=== PATIENT | male | born 1940 | race Caucasian/White ===

== ENCOUNTER 2017-11-30 17:35 | Inpatient (IN) | payer MEDICARE, OTHER ==
[2017-11-30] MEDS ORDERED: PIP/TAZO PER PHARMACY MC (18:15)
[2017-11-30] MEDS ORDERED: ONDANSETRON PF 4 MG/2 ML VIAL. IV (18:30)
[2017-11-30 18:43] LABS: ADD MAN DIFF? NO
[2017-11-30 18:45] LABS: BASO # 0.1 x10^3/uL (0.0-0.2); BASO % 1 % (0-3); EOS # 0.1 x10^3/uL (0.0-0.7); EOS % 1 % (0-3); HEMATOCRIT 37.4 % (39.0-53.0); HEMOGLOBIN 12.8 g/dL (13.0-17.5); LYMPH # 1.6 x10^3/uL (1.0-4.8); LYMPH % 17 % (24-48); MEAN CORPUSCULAR HEMOGLOBIN 34 pg (25-35); MEAN CORPUSCULAR HGB CONC 34 g/dL (31-37); MEAN CORPUSCULAR VOLUME 98 fL (79-100); MONO # 0.9 x10^3/uL (0.0-1.1); MONO % 9 % (0-9); NEUT % 72 % (31-73); PLATELET COUNT 362 x10^3/uL (140-400); RED BLOOD COUNT 3.82 x10^6/uL (4.30-5.70); RED CELL DISTRIBUTION WIDTH 14.1 % (11.5-14.5); WHITE BLOOD COUNT 9.7 x10^3/uL (4.0-11.0)
[2017-11-30] MEDS: PIPERACILLIN/TAZOBACTAM 3.375 GM in IV NORMAL SALINE 50ML 50 ML IV (18:52)
[2017-11-30 18:53] LABS: ANION GAP 9 (6-14); BLOOD UREA NITROGEN 14 mg/dL (8-26); BUN/CREATININE RATIO 16 (6-20); CALCIUM 9.5 mg/dL (8.5-10.1); CARBON DIOXIDE 27 mmol/L (21-32); CHLORIDE 102 mmol/L (98-107); CREATININE 0.9 mg/dL (0.7-1.3); GLUCOSE 104 mg/dL (70-99); POTASSIUM 4.7 mmol/L (3.5-5.1); SODIUM 138 mmol/L (136-145)
[2017-11-30] MEDS: oxyCODONE/APAP 5/325 1 TAB TABLET PO (18:53)
[2017-11-30 18:59] LABS: ALBUMIN 3.3 g/dL (3.4-5.0); ALBUMIN/GLOBULIN RATIO 0.7 (1.0-1.7); ALK PHOS 87 U/L (46-116); ALT (SGPT) 39 U/L (16-63); AST (SGOT) 46 U/L (15-37); TOTAL BILIRUBIN 0.5 mg/dL (0.2-1.0); TOTAL PROTEIN 7.9 g/dL (6.4-8.2)
[2017-11-30] MEDS: IV NORMAL SALINE 1000ML BAG 1,000 ML IV (21:59)
[2017-11-30] MEDS: VANCOMYCIN 1.75 GM in IV NORMAL SALINE 500ML BAG 500 ML IV (21:59)
[2017-11-30] MEDS: fentaNYL PF VIAL 100 MCG/2 ML VIAL IV (22:02)
[2017-11-30] MEDS: IPRATROPIUM BROMIDE 0.5 MG/2.5 ML NEBU. NEB (22:38)
[2017-12-01] MEDS: VANCOMYCIN PER PHARMACY MC (01:08)
[2017-12-01] MEDS: PIPERACILLIN/TAZOBACTAM 3.375 GM in IV NORMAL SALINE 50ML 50 ML IV ×4 (02:45→16:48)
[2017-12-01] MEDS: IV NORMAL SALINE 1000ML BAG 1,000 ML IV ×2 (04:26→14:26)
[2017-12-01] MEDS: IPRATROPIUM BROMIDE 0.5 MG/2.5 ML NEBU. NEB ×4 (07:00→20:02)
[2017-12-01 08:18] LABS: ADD MAN DIFF? NO
[2017-12-01 08:29] LABS: BASO % 0 % (0-3); EOS # 0.2 x10^3/uL (0.0-0.7); EOS % 3 % (0-3); HEMATOCRIT 35.7 % (39.0-53.0); HEMOGLOBIN 12.2 g/dL (13.0-17.5); LYMPH # 0.9 x10^3/uL (1.0-4.8); LYMPH % 13 % (24-48); MEAN CORPUSCULAR HEMOGLOBIN 34 pg (25-35); MEAN CORPUSCULAR HGB CONC 34 g/dL (31-37); MEAN CORPUSCULAR VOLUME 98 fL (79-100); MONO # 0.6 x10^3/uL (0.0-1.1); MONO % 9 % (0-9); NEUT # 5.4 x10^3uL (1.8-7.7); NEUT % 75 % (31-73); PLATELET COUNT 302 x10^3/uL (140-400); RED BLOOD COUNT 3.64 x10^6/uL (4.30-5.70); RED CELL DISTRIBUTION WIDTH 13.8 % (11.5-14.5); WHITE BLOOD COUNT 7.2 x10^3/uL (4.0-11.0)
[2017-12-01 08:43] LABS: ANION GAP 6 (6-14); BLOOD UREA NITROGEN 11 mg/dL (8-26); CALCIUM 9.2 mg/dL (8.5-10.1); CARBON DIOXIDE 30 mmol/L (21-32); CHLORIDE 104 mmol/L (98-107); CREATININE 0.9 mg/dL (0.7-1.3); GLUCOSE 95 mg/dL (70-99); POTASSIUM 4.1 mmol/L (3.5-5.1); SODIUM 140 mmol/L (136-145)
[2017-12-01] MEDS ORDERED: IPRATRPIUM/ALBUTEROL 0.5/2.5MG 3 ML NEBU. NEB (08:45)
[2017-12-01] MEDS: SENNOSIDES/DOCUSATE 8.6/50MG TABLET. PO ×2 (09:00→21:01)
[2017-12-01 09:41] LABS: PROCALCITONIN < 0.10 ng/mL (0.00-0.10); SEDIMENTATION RATE 42 (0-15)
[2017-12-01] MEDS: oxyCODONE/APAP 5/325 1 TAB TABLET PO ×2 (10:48→16:47)
[2017-12-01] MEDS: VANCOMYCIN 1 GM in IV NORMAL SALINE 250ML 250 ML IV ×2 (10:52→23:11)
[2017-12-01] MEDS: FINASTERIDE 5 MG TABLET. PO (10:56)
[2017-12-01] MEDS: MULTIVITAMIN with MINERAL TABLET. PO (10:56)
[2017-12-01] MEDS: ENOXAPARIN 40 MG/0.4 ML SYRINGE. SQ (10:57)
[2017-12-01] MEDS: CHOLECALCIFEROL (VITAMIN D3) 1,000 UNIT TABLET PO ×2 (10:57→21:01)
[2017-12-01] MEDS: GADOBUTROL 7.5 MMOL/7.5 ML VIAL IV (15:34)
[2017-12-01] MEDS: NICOTINE 21MG PATCH. TD (21:00)
[2017-12-01] MEDS: TAMSULOSIN 0.4 MG CAP.ER.24H. PO (21:00)
[2017-12-01] MEDS: LACTOBACILLUS RHAMNOSUS GG 1 CAPSULE. PO (21:00)
[2017-12-01] MEDS: DONEPEZIL HCL 10 MG TABLET. PO (21:01)
[2017-12-01] MEDS: CLOPIDOGREL BISULFATE 75 MG TABLET PO (21:01)
[2017-12-01] MEDS: ALBUTEROL SULFATE 2.5 MG/3 ML NEBU. NEB (21:12)
[2017-12-02] MEDS: PIPERACILLIN/TAZOBACTAM 3.375 GM in IV NORMAL SALINE 50ML 50 ML IV ×5 (00:23→22:46)
[2017-12-02] MEDS: oxyCODONE/APAP 5/325 1 TAB TABLET PO ×3 (00:35→22:45)
[2017-12-02] MEDS: tiZANidine 4 MG TABLET. PO ×2 (02:35→14:40)
[2017-12-02] MEDS: fentaNYL PF VIAL 100 MCG/2 ML VIAL IV ×3 (03:27→22:45)
[2017-12-02] MEDS: IPRATROPIUM BROMIDE 0.5 MG/2.5 ML NEBU. NEB ×4 (07:50→19:21)
[2017-12-02] MEDS: FINASTERIDE 5 MG TABLET. PO (08:39)
[2017-12-02] MEDS: LACTOBACILLUS RHAMNOSUS GG 1 CAPSULE. PO ×2 (08:39→22:44)
[2017-12-02] MEDS: CHOLECALCIFEROL (VITAMIN D3) 1,000 UNIT TABLET PO ×2 (08:39→22:45)
[2017-12-02] MEDS: SENNOSIDES/DOCUSATE 8.6/50MG TABLET. PO ×2 (08:39→22:44)
[2017-12-02] MEDS: ENOXAPARIN 40 MG/0.4 ML SYRINGE. SQ (08:41)
[2017-12-02] MEDS: MULTIVITAMIN with MINERAL TABLET. PO (08:41)
[2017-12-02] MEDS: NICOTINE 21MG PATCH. TD (08:42)
[2017-12-02 10:46] LABS: ADD MAN DIFF? NO
[2017-12-02 10:58] LABS: BASO % 0 % (0-3); EOS # 0.2 x10^3/uL (0.0-0.7); EOS % 3 % (0-3); HEMATOCRIT 33.8 % (39.0-53.0); HEMOGLOBIN 11.7 g/dL (13.0-17.5); LYMPH # 0.6 x10^3/uL (1.0-4.8); LYMPH % 9 % (24-48); MEAN CORPUSCULAR HEMOGLOBIN 34 pg (25-35); MEAN CORPUSCULAR HGB CONC 35 g/dL (31-37); MEAN CORPUSCULAR VOLUME 98 fL (79-100); MONO # 0.9 x10^3/uL (0.0-1.1); MONO % 12 % (0-9); NEUT # 5.5 x10^3uL (1.8-7.7); NEUT % 76 % (31-73); PLATELET COUNT 304 x10^3/uL (140-400); RED BLOOD COUNT 3.47 x10^6/uL (4.30-5.70); WHITE BLOOD COUNT 7.2 x10^3/uL (4.0-11.0)
[2017-12-02 11:05] LABS: ANION GAP 3 (6-14); BLOOD UREA NITROGEN 12 mg/dL (8-26); CALCIUM 8.6 mg/dL (8.5-10.1); CARBON DIOXIDE 33 mmol/L (21-32); CHLORIDE 105 mmol/L (98-107); CREATININE 0.9 mg/dL (0.7-1.3); GLUCOSE 97 mg/dL (70-99); POTASSIUM 4.3 mmol/L (3.5-5.1); SODIUM 141 mmol/L (136-145)
[2017-12-02 11:11] LABS: VANC TR 11.7 mcg/mL (10.0-20.0)
[2017-12-02] MEDS: VANCOMYCIN PER PHARMACY MC (11:21)
[2017-12-02] MEDS: VANCOMYCIN 1 GM in IV NORMAL SALINE 250ML 250 ML IV ×2 (14:28→22:46)
[2017-12-02] MEDS: DONEPEZIL HCL 10 MG TABLET. PO (22:44)
[2017-12-02] MEDS: NICOTINE 14MG PATCH. TD (22:44)
[2017-12-02] MEDS: TAMSULOSIN 0.4 MG CAP.ER.24H. PO (22:45)
[2017-12-02] MEDS: CLOPIDOGREL BISULFATE 75 MG TABLET PO (22:47)
[2017-12-03] MEDS: PIPERACILLIN/TAZOBACTAM 3.375 GM in IV NORMAL SALINE 50ML 50 ML IV ×4 (06:00→23:43)
[2017-12-03] MEDS: IPRATROPIUM BROMIDE 0.5 MG/2.5 ML NEBU. NEB ×4 (07:15→20:28)
[2017-12-03] MEDS: CHOLECALCIFEROL (VITAMIN D3) 1,000 UNIT TABLET PO ×2 (09:24→20:23)
[2017-12-03] MEDS: LACTOBACILLUS RHAMNOSUS GG 1 CAPSULE. PO ×2 (09:24→20:24)
[2017-12-03] MEDS: NICOTINE 14MG PATCH. TD (09:24)
[2017-12-03] MEDS: FINASTERIDE 5 MG TABLET. PO (09:24)
[2017-12-03] MEDS: SENNOSIDES/DOCUSATE 8.6/50MG TABLET. PO ×2 (09:24→20:23)
[2017-12-03] MEDS: MULTIVITAMIN with MINERAL TABLET. PO (09:24)
[2017-12-03] MEDS: ENOXAPARIN 40 MG/0.4 ML SYRINGE. SQ (09:26)
[2017-12-03] MEDS: VANCOMYCIN 1 GM in IV NORMAL SALINE 250ML 250 ML IV ×2 (11:06→23:42)
[2017-12-03] MEDS: oxyCODONE/APAP 5/325 1 TAB TABLET PO ×2 (12:27→20:24)
[2017-12-03] MEDS: VANCOMYCIN PER PHARMACY MC (13:12)
[2017-12-03 17:09] LABS: CREATININE 0.9 mg/dL (0.7-1.3)
[2017-12-03] MEDS: DONEPEZIL HCL 10 MG TABLET. PO (20:23)
[2017-12-03] MEDS: TAMSULOSIN 0.4 MG CAP.ER.24H. PO (20:23)
[2017-12-03] MEDS: CLOPIDOGREL BISULFATE 75 MG TABLET PO (20:24)
[2017-12-03] MEDS: fentaNYL PF VIAL 100 MCG/2 ML VIAL IV (20:24)
[2017-12-03] MEDS: ALBUTEROL SULFATE 2.5 MG/3 ML NEBU. NEB (22:14)
[2017-12-04] MEDS: fentaNYL PF VIAL 100 MCG/2 ML VIAL IV (00:14)
[2017-12-04] MEDS: PIPERACILLIN/TAZOBACTAM 3.375 GM in IV NORMAL SALINE 50ML 50 ML IV ×4 (06:10→23:00)
[2017-12-04] MEDS: oxyCODONE/APAP 5/325 1 TAB TABLET PO ×3 (06:19→21:28)
[2017-12-04] MEDS: IPRATROPIUM BROMIDE 0.5 MG/2.5 ML NEBU. NEB ×4 (07:30→21:06)
[2017-12-04] MEDS: SENNOSIDES/DOCUSATE 8.6/50MG TABLET. PO ×2 (09:02→21:28)
[2017-12-04] MEDS: CHOLECALCIFEROL (VITAMIN D3) 1,000 UNIT TABLET PO ×2 (09:02→21:28)
[2017-12-04] MEDS: MULTIVITAMIN with MINERAL TABLET. PO (09:03)
[2017-12-04] MEDS: FINASTERIDE 5 MG TABLET. PO (09:03)
[2017-12-04] MEDS: LACTOBACILLUS RHAMNOSUS GG 1 CAPSULE. PO ×2 (09:03→21:28)
[2017-12-04] MEDS: NICOTINE 14MG PATCH. TD (09:04)
[2017-12-04] MEDS: ENOXAPARIN 40 MG/0.4 ML SYRINGE. SQ (09:04)
[2017-12-04 12:15] LABS: MRSA BY PCR Negative (Negative)
[2017-12-04 13:00] LABS: CREATININE 0.8 mg/dL (0.7-1.3)
[2017-12-04] MEDS: CETIRIZINE HCL 10 MG TABLET. PO (17:25)
[2017-12-04] MEDS: CLOPIDOGREL BISULFATE 75 MG TABLET PO (21:28)
[2017-12-04] MEDS: LINEZOLID 600 MG TABLET PO (21:28)
[2017-12-04] MEDS: DONEPEZIL HCL 10 MG TABLET. PO (21:28)
[2017-12-04] MEDS: TAMSULOSIN 0.4 MG CAP.ER.24H. PO (21:28)
[2017-12-05] MEDS: ALBUTEROL SULFATE 2.5 MG/3 ML NEBU. NEB (00:34)
[2017-12-05 04:39] LABS: HEMATOCRIT 33.2 % (39.0-53.0); HEMOGLOBIN 11.4 g/dL (13.0-17.5); MEAN CORPUSCULAR HEMOGLOBIN 33 pg (25-35); MEAN CORPUSCULAR HGB CONC 34 g/dL (31-37); MEAN CORPUSCULAR VOLUME 97 fL (79-100); PLATELET COUNT 296 x10^3/uL (140-400); RED BLOOD COUNT 3.43 x10^6/uL (4.30-5.70); RED CELL DISTRIBUTION WIDTH 13.6 % (11.5-14.5); WHITE BLOOD COUNT 8.2 x10^3/uL (4.0-11.0)
[2017-12-05] MEDS: PIPERACILLIN/TAZOBACTAM 3.375 GM in IV NORMAL SALINE 50ML 50 ML IV ×4 (05:09→23:58)
[2017-12-05] MEDS: oxyCODONE/APAP 5/325 1 TAB TABLET PO ×2 (05:11→20:52)
[2017-12-05 05:31] LABS: ANION GAP 7 (6-14); BLOOD UREA NITROGEN 14 mg/dL (8-26); CALCIUM 9.2 mg/dL (8.5-10.1); CARBON DIOXIDE 28 mmol/L (21-32); CHLORIDE 106 mmol/L (98-107); CREATININE 0.9 mg/dL (0.7-1.3); GLUCOSE 94 mg/dL (70-99); SODIUM 141 mmol/L (136-145)
[2017-12-05] MEDS: IPRATROPIUM BROMIDE 0.5 MG/2.5 ML NEBU. NEB ×4 (07:40→19:02)
[2017-12-05] MEDS: LINEZOLID 600 MG TABLET PO ×2 (08:52→20:52)
[2017-12-05] MEDS: LACTOBACILLUS RHAMNOSUS GG 1 CAPSULE. PO ×2 (08:52→20:51)
[2017-12-05] MEDS: MULTIVITAMIN with MINERAL TABLET. PO (08:52)
[2017-12-05] MEDS: CETIRIZINE HCL 10 MG TABLET. PO (08:53)
[2017-12-05] MEDS: FINASTERIDE 5 MG TABLET. PO (08:53)
[2017-12-05] MEDS: CHOLECALCIFEROL (VITAMIN D3) 1,000 UNIT TABLET PO ×2 (08:53→20:52)
[2017-12-05] MEDS: SENNOSIDES/DOCUSATE 8.6/50MG TABLET. PO ×2 (08:53→20:51)
[2017-12-05] MEDS: NICOTINE 14MG PATCH. TD (08:54)
[2017-12-05] MEDS: ENOXAPARIN 40 MG/0.4 ML SYRINGE. SQ (08:54)
[2017-12-05] MEDS: TAMSULOSIN 0.4 MG CAP.ER.24H. PO (20:51)
[2017-12-05] MEDS: DONEPEZIL HCL 10 MG TABLET. PO (20:52)
[2017-12-05] MEDS: CLOPIDOGREL BISULFATE 75 MG TABLET PO (20:55)
[2017-12-05] MEDS: fentaNYL PF VIAL 100 MCG/2 ML VIAL IV (23:12)
[2017-12-06] MEDS: ALBUTEROL SULFATE 2.5 MG/3 ML NEBU. NEB (00:57)
[2017-12-06] MEDS: tiZANidine 4 MG TABLET. PO (01:48)
[2017-12-06] MEDS: oxyCODONE/APAP 5/325 1 TAB TABLET PO ×2 (03:54→12:11)
[2017-12-06] MEDS: PIPERACILLIN/TAZOBACTAM 3.375 GM in IV NORMAL SALINE 50ML 50 ML IV ×2 (05:59→12:07)
[2017-12-06] MEDS: IPRATROPIUM BROMIDE 0.5 MG/2.5 ML NEBU. NEB ×2 (07:32→11:06)
[2017-12-06] MEDS: SENNOSIDES/DOCUSATE 8.6/50MG TABLET. PO (08:29)
[2017-12-06] MEDS: FINASTERIDE 5 MG TABLET. PO (08:29)
[2017-12-06] MEDS: CHOLECALCIFEROL (VITAMIN D3) 1,000 UNIT TABLET PO (08:29)
[2017-12-06] MEDS: NICOTINE 14MG PATCH. TD (08:29)
[2017-12-06] MEDS: MULTIVITAMIN with MINERAL TABLET. PO (08:29)
[2017-12-06] MEDS: ENOXAPARIN 40 MG/0.4 ML SYRINGE. SQ (08:29)
[2017-12-06] MEDS: CETIRIZINE HCL 10 MG TABLET. PO (08:29)
[2017-12-06] MEDS: LACTOBACILLUS RHAMNOSUS GG 1 CAPSULE. PO (08:29)
[2017-12-06] MEDS: LINEZOLID 600 MG TABLET PO (08:29)
== END 2017-12-06 16:00 | disposition home or self-care (01) | DRG 862 ==
LOC: ER 17:35 → 4 NORTH 18:08
DX: T81.4XXA Infection following a procedure, initial encounter (principal); A41.9 Sepsis, unspecified organism; L03.116 Cellulitis of left lower limb; M86.9 Osteomyelitis, unspecified; E78.00 Pure hypercholesterolemia, unspecified; E78.5 Hyperlipidemia, unspecified; F03.90 Unspecified dementia, unspecified severity, without behavioral disturbance, psychotic disturbance, mood disturbance, and anxiety; F17.200 Nicotine dependence, unspecified, uncomplicated; I10 Essential (primary) hypertension; I73.9 Peripheral vascular disease, unspecified; J44.9 Chronic obstructive pulmonary disease, unspecified; L03.032 Cellulitis of left toe; Y83.8 Other surgical procedures as the cause of abnormal reaction of the patient, or of later complication, without mention of misadventure at the time of the procedure; N40.0 Benign prostatic hyperplasia without lower urinary tract symptoms; Z86.73 Personal history of transient ischemic attack (TIA), and cerebral infarction without residual deficits; Z89.412 Acquired absence of left great toe; Y92.89 Other specified places as the place of occurrence of the external cause
CPT/HCPCS: 36415; 73630; 73720; 80048; 80053; 80202; 82565; 84145; 85025; 85027; 85651; 87040; 87071; 87075; 87641; 92526-GN; 92610-GN; 94640; 94760; 97110-GO; 97110-GP; 97116-GP; 97162-GP; 97166-GO; 97530-GO; 97535-GO; 99285; 99285-25; A9585; J1650; J2543; J3010; J3370; J7030; J7040; J7050; J7613; J7644